=== PATIENT | male | born 1940 | race Caucasian/White ===

== ENCOUNTER 2017-01-17 09:17 | Day surgery (SDC) | payer MEDICARE, BC ==
--- NOTE | ~2017-01-17 | EGD ---
EGD REPORT [facility] [address] [address] NAME: JOYCE ZAVALA JR : 44 [place]US : [place] [facility] [place] PAT#: [id number] AGE: 76 ADM/REG DATE : 01/17/17 MR#: [id number] REPORT SERV DATE: 01/17/17 DICTATED BY: CARLIE ANDUJAR DATE: 01/17/17 REPORT STATUS : Draft [facility]ANSCRIBED BY: [facility] DATE: 01/17/17 Endoscopy Center Patient Name: Joyce Zavala Date of : 1940 Attending MD: CARLIE ANDUJAR MD Procedure Date No Time: 01/17/2017 Procedure: Colonoscopy Indications: High risk colon cancer surveillance: Personal history of colonic polyps Referring MD: LIS ALVARADO JR. Medicines: Monitored Anesthesia Care Complications: No immediate complications. Procedure: Pre-Anesthesia Assessment: - ASA Grade Assessment: III - A patient with severe systemic disease. After I obtained informed consent, the scope was passed under direct vision. Throughout the procedure, the patient's blood pressure, pulse, and oxygen saturations were monitored continuously. The CF [id number] was introduced through the anus and advanced to the terminal ileum, with identification of the appendiceal orifice and IC valve. The colonoscopy was performed with difficulty due to significant looping. The patient tolerated the procedure well. The quality of the bowel preparation was adequate. Findings: The digital rectal exam was normal. Pertinent negatives include no palpable rectal lesions. Multiple diverticula were found in the sigmoid colon. Hemorrhoids were found during retroflexion and were mild. A sessile polyp was found in the ascending colon. The polyp was removed with a cold biopsy forceps. Resection and retrieval were complete. A sessile polyp was found in the transverse colon. The polyp was 5 mm in size. The polyp was removed with a cold biopsy forceps. Resection and retrieval were complete. Impression: - Diverticulosis in the sigmoid colon. - Hemorrhoids. - One 6 mm polyp in the ascending colon. Resected and retrieved. - One 5 mm polyp in the transverse colon. Resected and retrieved. Recommendation: - Patient has a contact number available for EGD REPORT [address] [address] NAME: JOYCE ZAVALA JR : [birth year] [place]US : [place] [facility] [place] PAT#: [id number] AGE: 76 ADM/REG DATE : 01/17/17 MR#: [id number] REPORT SERV DATE: 01/17/17 DICTATED BY: CARLIE ANDUJAR DATE: 01/17/17 REPORT STATUS : Draft TRANSCRIBED BY: [employer] DATE: 01/17/17 emergencies. The signs and symptoms of potential delayed complications were discussed with the patient. Return to normal activities tomorrow. Written discharge instructions were provided to the patient. - Regular diet. - Continue present medications. - Await pathology results. - Repeat colonoscopy in 5 years for surveillance. - Return to GI clinic in 4 weeks. Procedure Code(s): --- Professional --- 81632, Colonoscopy, flexible, proximal to splenic flexure; with biopsy, single or multiple Diagnosis Code(s): --- Professional --- K64.9, Unspecified hemorrhoids K57.30, Diverticulosis of large intestine without perforation or abscess without bleeding D12.3, Benign neoplasm of transverse colon Z86.010, Personal history of colonic polyps CPT copyright 2013 [employer]. All rights reserved. The codes documented in this report are preliminary and upon thermal intelligence analyst review may be revised to meet current compliance requirements. CARLIE ANDUJAR MD 01/17/2017 11:56 AM This report has been signed electronically. Number of Addenda: 0 Note Initiated On: 01/17/2017 11:08 AM Scope Withdrawal Time 0 hours 9 minutes 54 seconds [id number] [id number]
--- NOTE | ~2017-01-17 | EGD ---
EGD REPORT [facility] [address] [address] NAME: JOYCE ZAVALA JR : 44 [place] [facility] [place] [id number] AGE: 76 ADM/REG DATE : 01/17/17 MR#: [id number] REPORT SERV DATE: 01/17/17 DICTATED BY: CARLIE ANDUJAR DATE: 01/17/17 REPORT STATUS : Draft TRANSCRIBED BY: [facility] DATE: 01/17/17 Endoscopy Center Patient Name: Joyce Zavala Date of : 1940 Attending MD: CARLIE ANDUJAR MD Procedure Date No Time: 01/17/2017 Procedure: Upper GI endoscopy Indications: Iron deficiency anemia Referring MD: LIS ALVARADO JR. Medicines: Monitored Anesthesia Care Complications: No immediate complications. Procedure: Pre-Anesthesia Assessment: - ASA Grade Assessment: III - A patient with severe systemic disease. After obtaining informed consent, the endoscope was passed under direct vision. Throughout the procedure, the patient's blood pressure, pulse, and oxygen saturations were monitored continuously. The GIF [id number] was introduced through the mouth, and advanced to the second part of duodenum. The upper GI endoscopy was accomplished without difficulty. The patient tolerated the procedure well. Findings: The examined esophagus was normal. The cardia and gastric fundus were normal on retroflexion. Localized mild inflammation characterized by congestion (edema) and erythema was found in the gastric antrum. Biopsies were taken with a cold forceps for histology. The duodenal bulb was normal. Two small angioectasias without bleeding were found in the second part of the duodenum. Coagulation for bleeding prevention using argon plasma at 0.3 liters/minute and 20 [place] was successful. The cardia and gastric fundus were normal on retroflexion. Impression: - Normal esophagus. - Gastritis. Biopsied. - Normal duodenal bulb. 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 Treated with thermal therapy. Recommendation: - Await pathology results. Procedure Code(s): --- Professional --- 74836, Esophagogastroduodenoscopy, flexible, transoral; EGD REPORT [facility] [address] [place], [place] [address]. [address] NAME: JOYCE ZAVALA CARLIE LOWRY : 44 [place] [facility] [place] [id number] AGE: 76 ADM/REG DATE : 01/17/17 MR#: [id number] REPORT SERV DATE: 01/17/17 DICTATED BY: CARLIE ANDUJAR DATE: 01/17/17 REPORT STATUS : Draft TRANSCRIBED BY: [facility] DATE: 01/17/17 with biopsy, single or multiple Diagnosis Code(s): --- Professional --- K29.70, Gastritis, unspecified, without bleeding K31.819, Angiodysplasia of stomach and duodenum without bleeding D50.9, Iron deficiency anemia, unspecified CPT copyright 2013 [employer]. All rights reserved. The codes documented in this report are preliminary and upon costuming supervisor review may be revised to meet current compliance requirements. CARLIE ANDUJAR MD 01/17/2017 11:38 AM This report has been signed electronically. Number of Addenda: 0 Note Initiated On: 01/17/2017 11:11 AM Scope Withdrawal Time 0 hours 0 minutes 0 seconds [address] [place] [address]
[~2017-01-17 09:17] MED LIST: ALBUTEROL; ALBUTEROL0.63 MG/3 INH; ASAB PO; CO Q-10100 MG PO; COMBIVENT INH; CRESTOR10 PO; DALIRESP500 MCG PO; DULERA 200 MCG/13 GM INH; FOLIC ACID400 MC1 PO; HERBS; LANTUS SC; LEG CRAMPS OR; LEVOTHYROXIN25 MCG PO; LOP50 PO; METHOC750B PO; NORCO1 TAB PO; NOVOLOG SC; PEP20 PO; PRIN2.5 PO; PROTONIX PO; SPIRIVA INH; SUPPLEMENT; SYMBICORT 160/41 INH INH; TOPXL50 PO; TYLENOL PM PO; ULTRAM50 PO; VICTOZA18 MG/3 ML SC; VITAMIN B 12 OR; VITAMIN C OR; VITAMINS; ZANTAC150 MG PO
== END 2017-01-17 23:59 | disposition home health service (06) ==
LOC: DMU 09:17
PROVIDERS: Internal Medicine Gastroenterology
PROC: 0W3P8ZZ Control Bleeding in Gastrointestinal Tract, Via Natural or Artificial Opening Endoscopic (ICD-10-PCS; 2017-01-17)
PROC: 0DB68ZX Excision of Stomach, Via Natural or Artificial Opening Endoscopic, Diagnostic (ICD-10-PCS; principal; 2017-01-17 10:30)
PROC: 0DBL8ZX Excision of Transverse Colon, Via Natural or Artificial Opening Endoscopic, Diagnostic (ICD-10-PCS; 2017-01-17 10:30)
PROC: 0DBK8ZX Excision of Ascending Colon, Via Natural or Artificial Opening Endoscopic, Diagnostic (ICD-10-PCS; 2017-01-17 10:30)
DX: Z12.11 Encounter for screening for malignant neoplasm of colon (principal); D12.3 Benign neoplasm of transverse colon; D12.2 Benign neoplasm of ascending colon; K29.70 Gastritis, unspecified, without bleeding; K31.819 Angiodysplasia of stomach and duodenum without bleeding; K57.30 Diverticulosis of large intestine without perforation or abscess without bleeding; K64.9 Unspecified hemorrhoids; D50.9 Iron deficiency anemia, unspecified; E11.9 Type 2 diabetes mellitus without complications; G47.33 Obstructive sleep apnea (adult) (pediatric); J44.9 Chronic obstructive pulmonary disease, unspecified; G62.9 Polyneuropathy, unspecified; I10 Essential (primary) hypertension; E78.00 Pure hypercholesterolemia, unspecified; M19.90 Unspecified osteoarthritis, unspecified site; F43.10 Post-traumatic stress disorder, unspecified; K21.9 Gastro-esophageal reflux disease without esophagitis; Z90.49 Acquired absence of other specified parts of digestive tract; Z79.82 Long term (current) use of aspirin; Z88.2 Allergy status to sulfonamides; Z86.010 Personal history of colon polyps; Z79.899 Other long term (current) drug therapy; Z79.4 Long term (current) use of insulin
CPT/HCPCS: 82962; 88305; 88342